=== PATIENT | female | born 1985 | race African-American/Black ===

== ENCOUNTER 2019-06-20 19:49 | Emergency (ER) | payer BC ==
[~2019-06-20] VITALS: Ht 180.3 cm; Wt 108.9 kg
[2019-06-20 20:00] VITALS: BP 80/50
--- NOTE | 2019-06-20 20:00 | NUR ---
ED Nurse Note: Patient presents with complaints of abdominal pain x 2 weeks.
[2019-06-20] MEDS ORDERED: Simethicone 80mg tab ORAL ONE (20:45)
[2019-06-20] MEDS ORDERED: Docusate 100mg cap ORAL ONE (20:45)
[2019-06-20] MEDS ORDERED: Simethicone 80mg tab ONE (20:52)
[2019-06-20] MEDS ORDERED: Ketorolac 30mg Inj IV ONE (21:00)
[2019-06-20 21:08] LABS: HEMATOCRIT 22.7 % (37.0-47.0); MEAN CORPUSCULAR VOLUME 65 FL (80-99); RED BLOOD COUNT 3.47 M/UL (4.20-5.40); RED CELL DISTRIBUTION WIDTH 20.7 % (11.6-14.8); WHITE BLOOD COUNT 17.1 K/UL (4.8-10.8)
[2019-06-20 21:12] LABS: HEMOGLOBIN 6.4 G/DL (12.0-16.0); PLATELET COUNT 1248 K/UL (150-450)
[2019-06-20 21:14] LABS: ANION GAP 10 mmol/L (5-15); BLOOD UREA NITROGEN 9 mg/dL (7-18); CALCIUM 8.3 MG/DL (8.5-10.1); CARBON DIOXIDE 26 MMOL/L (21-32); CHLORIDE 100 MMOL/L (98-107); CREATININE 1.1 MG/DL (0.55-1.30); POTASSIUM 3.8 MMOL/L (3.5-5.1); SODIUM 136 MMOL/L (136-145)
[2019-06-20 21:18] LABS: ALANINE AMINOTRANSFERASE 18 U/L (12-78); ALBUMIN 2.5 G/DL (3.4-5.0); ALBUMIN/GLOBULIN RATIO 0.5 (1.0-2.7); ALKALINE PHOSPHATASE 74 U/L (46-116); ASPARTATE AMINO TRANSFERASE 21 U/L (15-37); BILIRUBIN,TOTAL 0.4 MG/DL (0.2-1.0)
--- NOTE | 2019-06-20 21:21 | NUR ---
ED Nurse Note: Type and screen drawn.
[2019-06-20] MEDS ORDERED: Omnipaque-300 100ml vial INJ PRN (21:30)
--- NOTE | 2019-06-20 21:31 | NUR ---
ED Nurse Note: Patient voiding urine sample at this time.
[2019-06-20 21:43] LABS: INR 1.2 (0.9-1.1)
[2019-06-20 22:05] LABS: APPEARANCE,URINE CLEAR; BILIRUBIN, URINE NEGATIVE (NEGATIVE); GLUCOSE, URINE (UA) NEGATIVE (NEGATIVE); KETONES,URINE 2+ (NEGATIVE); LEUKOCYTE ESTERASE ,URINE 3+ (NEGATIVE); NITRITE,URINE NEGATIVE (NEGATIVE); PH,URINE 5 (4.5-8.0); PROTEIN,URINE 2+ (NEGATIVE); UROBILINOGEN,URINE 1 MG/DL (0.0-1.0)
[2019-06-20 22:07] LABS: COLOR,URINE YELLOW
--- NOTE | 2019-06-20 22:10 | Diagnostic Imaging Report ---
Indication: Abdominal pain x2 weeks Technique: Spiral acquisitions obtained through the abdomen and pelvis. No oral contrast utilized, per emergency room physician request No IV contrast utilized, per referring physician request.. Multiplanar reconstructions were generated. Total dose length product 1295 mGycm. CTDIvol(s) 20 mGy. Dose reduction achieved using automated exposure control Comparison: None Findings: The appendix is normal. No small bowel distention. There is a small amount of free pelvic fluid. No intraperitoneal gas demonstrated. There is evidence of prior gastric bypass surgery. The distal esophagus is unremarkable. Lack of IV contrast limits assessment of the solid organs. The liver, gallbladder, bile ducts, pancreas, spleen, adrenals, kidneys are unremarkable. No retroperitoneal or mesenteric mass or adenopathy. The uterus is enlarged. There is an intrauterine device in place. No pelvic mass or adenopathy. The included lung bases are clear. The bones are unremarkable. Impression: No acute abnormality Evidence of prior gastric bypass surgery. Somewhat enlarged uterus, may reflect uterine fibroids The CT scanner at [facility] is accredited by the [employer] and the scans are performed using protocols designed to limit radiation exposure to as low as reasonably achievable to attain images of sufficient resolution adequate for diagnostic evaluation.
[2019-06-20] MEDS ORDERED: cefTRIAXone 1 GM in NS 55 ML IVPB ONE (22:15)
--- NOTE | 2019-06-20 22:28 | Emergency Room Report ---
History of Present Illness General Chief Complaint: Abdominal Pain Source: Patient (Daniella Mckinney) Present Illness HPI 33-year-old female presents to the emergency department complaining of 10 out of 10 severity lower abdominal pain progressive x4 days. Patient reports she has been having discomfort for approximately 1 week she was recently diagnosed with UTI at an urgent care. Patient states that she has been taking her antibiotics as prescribed with no improvement of her symptoms. Patient reports that she has had worsening of her symptoms. She reports "gas pain" and feeling as though she needs to release flatulence but has been unable to. Patient denies fevers or chills she reports constipation states her last bowel movement was last week. Patient denies vomiting she denies blood in the stool or black tarry stools. She denies back pain. She denies history of /suspicion of and states she has an IUD. She denies recent unprotected intercourse or suspicion of STD. Pt. reports pain under the belly button. She states she still has an appendix. Denies CP, Palpitations, LOC, AMS, dizziness , Changes in Vision, Sensation, paresthesias, or a sudden severe headache. (Daniella Mckinney) Allergies: Coded Allergies: AMOXICILLIN (Verified Allergy, Unknown, 06/20/19) Patient History Past Medical History: see triage record Past Surgical History: none Pertinent Family History: none Now: No Reviewed Nursing Documentation: PMH: Agreed; PSxH: Agreed (Daniella Mckinney) Nursing Documentation-PMH Past Medical History: No Stated History (Daniella Mckinney) Review of Systems All Other Systems: negative except mentioned in HPI (Daniella Mckinney) Physical Exam Vital Signs Date Time Temp Pulse Resp B/P (MAP) Pulse Ox O2 Delivery O2 Flow Rate FiO2 06/20/19 19:46 99.3 85 18 80/50 (60) 96 Room Air Sp02 EP Interpretation: reviewed, normal General Appearance: alert, GCS 15, non-toxic, mild distress Head: normocephalic, atraumatic Eyes: bilateral eye normal inspection, bilateral eye PERRL ENT: hearing grossly normal, normal voice Neck: full range of motion Respiratory: lungs clear, normal breath sounds, speaking full sentences Cardiovascular #1: regular rate, rhythm Gastrointestinal: normal bowel sounds, soft, no guarding, tenderness - midline lower abdominal TTP, no appreciable localized RLQ ttp. abdomen is soft and not distended. Rectal: deferred Genitourinary: normal inspection, no CVA tenderness Musculoskeletal: back normal, gait/station normal, normal range of motion, non- tender Neurologic: alert, oriented x3, responsive, motor strength/tone normal, sensory intact, speech normal, grossly normal Psychiatric: judgement/insight normal (Daniella Mckinney) Medical Decision Making PA Attestation Dr. Hernandez is my supervising Physician whom patient management has been discussed with. (Daniella Mckinney) Diagnostic Impression: Primary Impression: Abdominal pain Qualified Codes: R10.30 - Lower abdominal pain, unspecified Additional Impressions: UTI (urinary tract infection) Qualified Codes: N30.00 - Acute cystitis without hematuria Anemia Qualified Codes: D50.0 - Iron deficiency anemia secondary to blood loss ( chronic) Fibroid Menorrhagia Qualified Codes: N92.0 - Excessive and frequent menstruation with regular cycle ER Course 33-year-old female presents to the emergency department complaining of 10 out of 10 severity lower abdominal pain progressive x4 days. Patient reports she has been having discomfort for approximately 1 week she was recently diagnosed with UTI at an urgent care. Patient states that she has been taking her antibiotics as prescribed with no improvement of her symptoms. Patient reports that she has had worsening of her symptoms. She reports "gas pain" and feeling as though she needs to release flatulence but has been unable to. Patient denies fevers or chills she reports constipation states her last bowel movement was last week. Patient denies vomiting she denies blood in the stool or black tarry stools. She denies back pain. She denies history of /suspicion of and states she has an IUD. She denies recent unprotected intercourse or suspicion of STD. Pt. reports pain under the belly button. She states she still has an appendix. Denies CP, Palpitations, LOC, AMS, dizziness , Changes in Vision, Sensation, paresthesias, or a sudden severe headache. Ddx considered but are not limited to Obstruction, perforation,diverticulitis, acute appendicitis, diarrhea,UC, PUD, GE, pancreatitis, gallstone, ovarian torsion, UTI, ectopic , PID tubo-ovarian abscess. Vital signs:* Hypotensive in triage, remaining VS are WNL, pt. is afebrile H&PE are most consistent with female with worsening abdominal pain requiring further evaluation with labs and imaging. ORDERS: -CBC: hgb 6.6 - CMP: WNL - LIPASE: pending at time of sign-out. -UA: pending at time of sign-out. -URINE HCG: negative -PT/PTT: pending at time of sign-out. -ABO/screen: pending at time of sign-out. ED INTERVENTIONS: - Colace, Simethicone and Toradol IV -1 liter NS Bolus IV DISPOSITION: This pt. is signed out to on-coming attending physician Dr. Lopez (Daniella Mckinney) ER Course This patient presents with UTI does not better with the staff. Will switch antibiotics. She does have significant anemia that is chronic in nature probably from her fibroid and uterine bleeding. She is he medically stable. This is a chronic blood loss. She does not want acute blood transfusion. Will discharge home. (Job Lopez MD) CT/MRI/US Diagnostic Results CT/MRI/US Diagnostic Results : Imaging Test Ordered: CT Abdomen and Pelvis without contrast Impression Pending at time of sign-out. (Daniella Mckinney) CT/MRI/US Diagnostic Results : Imaging Test Ordered: CT abdomen pelvis Impression Read by radiologist. Question of a 2.9 x 2.6 cm right ovarian cyst. Fibroids. (Job Lopez MD) Last Vital Signs Date Time Temp Pulse Resp B/P (MAP) Pulse Ox O2 Delivery O2 Flow Rate FiO2 06/20/19 22:01 99.3 06/20/19 20:00 85 18 Room Air 06/20/19 20:00 80/50 96 (Daniella Mckinney) Status: improved (Job Lopez MD) Disposition: HOME, SELF-CARE Condition: Stable Scripts Ferrous Sulfate, Dried (SLOW RELEASE IRON) 168 Mg Tablet.er 168 MG PO BID, #100 TAB Prov: Job Lopez MD 06/20/19 Levofloxacin* (LEVAQUIN*) 500 Mg Tablet 500 MG ORAL DAILY, #7 TAB Prov: Job Lopez MD 06/20/19 Hydrocodone/Acetaminophen 5-325* (HYDROCODONE/ACETAMINOPHEN 5-325*) 1 Each Tablet 1 TAB ORAL Q6H PRN for For Pain, #15 TAB 0 Refills Prov: Job Lopez MD 06/20/19 Additional Instructions: Follow-up with your doctor in 7 days. See your plastic surgery specialist for your fibroid and uterine bleeding. Return if symptoms worsen. Daniella Mckinney Jun 20, 2019 22:28 Job Lopez MD Jun 20, 2019 22:43
[2019-06-20] MEDS ORDERED: HYDROCODON-ACE1 EA15 ORAL (23:09)
[2019-06-20] MEDS ORDERED: SLOW RELEASE I168 MG PO (23:09)
[2019-06-20] MEDS ORDERED: LEVAQUIN500 MG ORAL (23:09)
[2019-06-20 23:14] VITALS: BP 80/50
--- NOTE | 2019-06-20 23:14 | NUR ---
ED Nurse Note: Patient cleared for discharge, no s/s of acute distress. Patient is A&Ox4, with no dizziness per patient. Patient is ambulatory with steady gait. Patient verbalized understanding of discharge instructions, ID band removed, IV removed. Patient departed with all belongings accompanied by her family.
== END 2019-06-20 23:27 | disposition home or self-care (01) ==
LOC: EDBD 19:49 → EMR 20:41
DX: N30.00 Acute cystitis without hematuria (principal); D50.0 Iron deficiency anemia secondary to blood loss (chronic); N92.0 Excessive and frequent menstruation with regular cycle; R10.30 Lower abdominal pain, unspecified; Z88.1 Allergy status to other antibiotic agents
CPT/HCPCS: 36415; 74176; 80053; 81003; 81025; 83690; 85007; 85025; 85610; 85730; 86850; 86900; 86901; 87086; 96361; 96365; 96375; 99284; J0696; J1885; J7030